=== PATIENT | male | born 1995 | race Caucasian/White ===

== ENCOUNTER 2017-03-16 09:13 | Emergency (ER) | payer SELFPAY ==
[2017-03-16 09:19] VITALS: BP 135/86; PULSE 112; RESP 20; TEMP 97.8; O2SAT 99
--- NOTE | 2017-03-16 09:41 | C.PDOC ---
History Of Present Illness 21 y/o male presents to the ER for a strange,tingling sensation in the skin of his legs which has been present for 2 days.Patient reports that he did not take any medications for the skin sensation. Patient denies having any injuries. Patient also denies any drug abuse. Patient denies taking any new medications for any medical problems. 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 Time Seen by Provider: 03/16/17 09:31 Chief Complaint (Nursing): Medical Clearance History Per: Patient History/Exam Limitations: no limitations Onset/Duration Of Symptoms: Days Current Symptoms Are (Timing): Still Present Severity: Moderate Past Medical History Reviewed: Historical Data, Nursing Documentation, Vital Signs Vital Signs: Last Vital Signs Temp 97.8 F 03/16/17 09:17 Pulse 112 H 03/16/17 09:17 Resp 20 03/16/17 09:17 BP 135/86 03/16/17 09:17 Pulse Ox 99 03/16/17 10:54 - Medical History PMH: No Chronic Diseases Surgical History: No Surg Hx Family History: States: No Known Family Hx - Social History Hx Tobacco Use: No Hx Alcohol Use: No Hx Substance Use: No - Immunization History Hx Tetanus Toxoid Vaccination: No Hx Influenza Vaccination: No Hx Pneumococcal Vaccination: No Review Of Systems Except As Marked, All Systems Reviewed And Found Negative. Constitutional: Negative for: Fever, Chills Skin: Positive for: Other (tingling sensation in skin of legs) Neurological: Negative for: Weakness, Numbness Physical Exam - Physical Exam Appears: Non-toxic, No Acute Distress, Other (obese) Skin: Normal Color, Warm, No Rash Head: Atraumatic, Normacephalic Eye(s): bilateral: Normal Inspection, PERRL Nose: Normal Oral Mucosa: Moist Neck: Supple Chest: Symmetrical Cardiovascular: Rhythm Regular Respiratory: Normal Breath Sounds, No Accessory Muscle Use Extremity: Normal ROM (lower extremities), No Tenderness (lower extremities), No Swelling (lower extremities) Neurological/Psych: Oriented x3, Normal Speech, Normal Cognition, Normal Motor, Normal Sensation ED Course And Treatment O2 Sat by Pulse Oximetry: 99 (RA) Pulse Ox Interpretation: Normal Medical Decision Making Medical Decision Making: odd b/l leg skin sensation for 2 days normal skin, rheum, cardiovascular and neurological exam. Wants note for missing school today. Disposition Doctor Will See Patient In The: Office Counseled Patient/Family Regarding: Studies Performed, Diagnosis - Disposition Referrals: [facility] [Outside] [facility] [employer] [Outside] Disposition: HOME/ ROUTINE Disposition Time: 09:41 Condition: GOOD Additional Instructions: continue your normal routine Follow-up in our outpatient [facility] as needed Return for any significantly different or worse symptoms. Forms: General Discharge Instructions, [facility] (Croatian), Work Excuse - Clinical Impression Clinical Impression: Abnormal sensation of leg - Scribe Statement The provider has reviewed the documentation as recorded by the Ryanibe Simi Castellanos Provider Attestation: All medical record entries made by the Ryanibe were at my direction and personally dictated by me. I have reviewed the chart and agree that the record accurately reflects my personal performance of the history, physical exam, medical decision making, and the department course for this patient. I have also personally directed, reviewed, and agree with the discharge instructions and disposition.
== END 2017-03-16 10:06 | disposition home or self-care (01) ==
LOC: C.ER 09:13
DX: R20.2 Paresthesia of skin (principal)

== ENCOUNTER 2018-07-26 12:24 | Emergency (ER) | payer MEDICAID, OTHER ==
[2018-07-26 12:33] VITALS: BP 135/82; PULSE 97; TEMP 98.8; O2SAT 99
--- NOTE | 2018-07-26 13:06 | C.PDOC ---
History Of Present Illness 23 y/o male pt presents to the ER c/o ear pain for x3 days. Pt reports he found water on his pillow this morning which prompted him to visit the ER. Pt denies fever, chills, dizziness, headache, changes in hearing and hx of diabetes. Time Seen by Provider: 07/26/18 12:35 Chief Complaint (Nursing): ENT Problem History Per: Patient History/Exam Limitations: None Onset/Duration Of Symptoms: Days (x3) Current Symptoms Are (Timing): Still Present Quality (Ear): Discharge Past Medical History Reviewed: Historical Data, Nursing Documentation, Vital Signs Vital Signs: Last Vital Signs Temp 98.8 F 07/26/18 12:31 Pulse 97 H 07/26/18 12:31 Resp 16 07/26/18 12:31 BP 135/82 07/26/18 12:31 Pulse Ox 99 07/26/18 12:31 Primary Care Provider: FAMILY PROVIDER,NO Family History: States: No Known Family Hx - Social History Hx Tobacco Use: No Hx Alcohol Use: No Hx Substance Use: No - Immunization History Hx Tetanus Toxoid Vaccination: No Hx Influenza Vaccination: No Hx Pneumococcal Vaccination: No Review Of Systems Except As Marked, All Systems Reviewed And Found Negative. Constitutional: Negative for: Fever, Chills, Other (hx of diabetes ) ENT: Positive for: Ear Pain, Ear Discharge. Negative for: Other (changes in hearing ) Neurological: Negative for: Headache, Dizziness Physical Exam - Physical Exam Appears: Non-toxic, No Acute Distress Skin: Warm, Dry Head: Normacephalic Eye(s): bilateral: EOMI Ear(s): Left: Other (edema, purulent d/c), Right: Normal Oral Mucosa: Moist Throat: Normal, No Erythema, No Exudate Cardiovascular: Rhythm Regular Respiratory: Normal Breath Sounds Neurological/Psych: Oriented x3, Normal Speech ED Course And Treatment O2 Sat by Pulse Oximetry: 99 (RA) Pulse Ox Interpretation: Normal Progress Note: Plans: -- amoxicillin. -- motrin Disposition - Disposition Referrals: Clarence Hernandez MD [Staff Provider] - Disposition: HOME/ ROUTINE Disposition Time: 15:18 Condition: STABLE Additional Instructions: Follow up with ENT within 1-2 days. Return to Ed if feel worse. Prescriptions: Amoxicillin/Clavulanate [Augmentin 875 MG-125 MG] 1 tab PO BID #20 tab Neomyc/Colist/Hydrocort/Thonzn [Cortisporin-Tc Ear Susp] 3 drop OT QID #10 ml Ibuprofen [Motrin Tab] 600 mg PO Q8 #30 tab Instructions: Ear Infections (Otitis Media) Forms: [employer] [facility] (Estonian) - Clinical Impression Clinical Impression: Otitis media - PA / VASCULAR PHYSICIAN / Resident Statement MD/ has reviewed & agrees with the documentation as recorded. - Scribe Statement The provider has reviewed the documentation as recorded by the Domonique Edge Do All medical record entries made by the Scribsanto were at my direction and personally dictated by me. I have reviewed the chart and agree that the record accurately reflects my personal performance of the history, physical exam, medical decision making, and the department course for this patient. I have also personally directed, reviewed, and agree with the discharge instructions and disposition.
[2018-07-26] MEDS ORDERED: Amoxicillin-Clav 875-125 mg Tab PO STA (13:18)
[2018-07-26] MEDS ORDERED: Amoxicillin-Clav 875-125 mg Tab PO ONE (13:28)
[2018-07-26 15:26] VITALS: RESP 20
== END 2018-07-26 15:24 | disposition home or self-care (01) ==
LOC: C.ER 12:24
DX: H66.92 Otitis media, unspecified, left ear (principal)